=== PATIENT | female | born 1985 | race Caucasian/White ===

== ENCOUNTER 2017-11-08 15:00 | Inpatient (IN) | payer MEDICAID ==
--- NOTE | 2017-11-08 15:29 | C.PDOC ---
History Of Present Illness 32 y/o female with hx of depression, possible bipolar, presents to the ED with her baby in order to have her baby evaluated. patient states baby's belly is distended. During interview with mom, she does not recall her baby's , unclear if C Section of vaginal. Does not recall upsetter, baby's weight, she has no documentations regarding the baby. She states she has memory problems. Patient has distant, flat affect, becomes tearful. As per uncle she doen't sleep, yelling on the phone. Mother denies any issues. As per uncle, patient left her family's home and returned with a baby. Time Seen by Provider: 11/08/17 15:22 History Per: Patient, Family Pain Scale Rating Of: 0 Additional History Per: Family Past Medical History - Medical History PMH: Depression - [facility] Procedures APPLICATION OF SPLINT (12/24/14) Family History: States: Unknown Family Hx - Social History Hx Tobacco Use: Yes Hx Alcohol Use: Yes Hx Substance Use: No - Immunization History Hx Tetanus Toxoid Vaccination: No Hx Influenza Vaccination: No Hx Pneumococcal Vaccination: No Review Of Systems Constitutional: Negative for: Fever, Chills Cardiovascular: Negative for: Chest Pain, Palpitations Respiratory: Negative for: Cough, Shortness of Breath Gastrointestinal: Negative for: Nausea, Vomiting, Abdominal Pain Physical Exam - Physical Exam Appears: Well Skin: Normal Color Head: Atraumatic Eye(s): bilateral: PERRL Respiratory: Normal Breath Sounds Gastrointestinal/Abdominal: Soft, No Tenderness Medical Decision Making Medical Decision Making: Patient appears slow to respond, distracted, unclear or unable to answer many questions. States she is off her psych meds. recommend she be evaluated by psych. baby admitted to Peds for safety. [facility] will be notified. Crisis spoke with patient's uncle and mother. Patient encouraged to sign into psych for full evaluation, she is refusing. Will medically clear patient and have her seen by [facility] screeners. Dr. Dumont contacted. Disposition - Disposition Disposition Time: 16:23 Condition: GUARDED - Clinical Impression Clinical Impression: Depression Physician Patient Turnover Patient Signed Over To: Albert Brooke Handoff Comments: Patient acting bizzarre, pending medical clearance and [facility] screening.
[2017-11-08 16:59] LABS: BASO % 0.4 % (0.0-2.0); EOS % 0.3 % (0.0-4.0); HEMOGLOBIN 15.6 g/dL (11.0-16.0); LYMPH # 2.6 K/uL (1.0-4.3); LYMPH % 30.7 % (20.0-40.0); MEAN CELL VOLUME 87.7 fL (81.0-99.0); MEAN CORPUSCULAR HEMOGLOBIN 29.7 pg (27.0-31.0); MEAN CORPUSCULAR HGB CONC 33.8 g/dL (33.0-37.0); MEAN PLATELET VOLUME 9.5 fL (7.2-11.7); MONO # 0.4 K/uL (0.0-0.8); MONO % 5.2 % (0.0-10.0); NEUT # 5.4 K/uL (1.8-7.0); NEUT % 63.4 % (50.0-75.0); NRBC % 0.1 % (0.0-2.0); RBC 5.27 Mil/uL (3.80-5.20); RED CELL DISTRIBUTION WIDTH 15.9 % (11.5-14.5); WHITE BLOOD COUNT 8.6 K/uL (4.8-10.8)
[2017-11-08 17:05] LABS: HCG,QUALITATIVE URINE NEGATIVE (NEGATIVE)
[2017-11-08 17:07] LABS: SQUAMOUS EPITHIAL 1 /hpf (0-5); URINE BACTERIA MANY (<OCC); URINE BILIRUBIN NEGATIVE (NEGATIVE); URINE BLOOD 1+ (NEGATIVE); URINE CLARITY Hazy (Clear); URINE COLOR Yellow (YELLOW); URINE GLUCOSE (UA) NORMAL (Normal); URINE LEUKOCYTE ESTERASE 2+ Leu/uL (Negative); URINE NITRATE POSITIVE (NEGATIVE); URINE PROTEIN NEGATIVE (NEGATIVE); URINE UROBILINOGEN NORMAL mg/dL (0.2-1.0)
[2017-11-08 17:11] LABS: ALB/GLOB RATIO 1.2 (1.0-2.1); ALBUMIN 4.6 g/dL (3.5-5.0); ALT/SGPT 54 U/L (9-52); AST/SGOT 34 U/L (14-36); BLOOD UREA NITROGEN 8 mg/dL (7-17); CALCIUM 10.1 mg/dl (8.6-10.4); GFR AFRICAN-AMERICAN > 60; GFR NON-AFRICAN AMERICAN > 60
[2017-11-08 17:31] LABS: BARBITURATES, UR NEGATIVE (NEGATIVE); BENZODIAZEPINES, UR NEGATIVE (NEGATIVE); OPIATES, UR NEGATIVE (NEGATIVE); PHENCYCLIDINE, UR NEGATIVE (NEGATIVE)
[2017-11-08 19:12] VITALS: RESP 18; O2SAT 99
--- NOTE | 2017-11-08 20:45 | PCM.BM ---
<RobbiRosina - Last Filed: 11/08/17 20:42> Treatment Plan Problems - Problems identified on initial assessmt Depression Date Initiated: 11/08/17 Time Initiated: 19:20 Assessment reference: NA Status: Active Treatment assets and liabiliti Patient Assests: ADL independent, negotiates basic needs Patient Liabilities: poor support system, relationship conflicts, language/ speech - Milieu Protocol Maintain good personal hygiene: daily Encourage regular showers, daily Remind patient to perform daily oral care Conduct patient checks and document Observation sheet: Q15 minutes Maintain personal safety: every shift Educate patient to report safety concerns to staff, every shift Monitor environment for contraband/sharps Medication safety: Monitor for expected outcome, potential side effects: every shift, Assess barriers to learning: every shift, Assess readiness for medication education: every shift <Milind Dumont - Last Filed: 11/10/17 10:46> - Diagnosis (1) Bipolar disorder with psychotic features Status: Acute Interventions: 11/10/17 10:46 * Assess/adjust medications daily and /or as needed * See patient on an individual basis 7x/week to assess level of manic behaviors and stability * Discuss risks, benefits, side effects and alternatives of medications * <Karrie Lewis - Last Filed: 11/10/17 10:50> Family Contact Family involvement: Family/SO is involved Family contact: Patient agrees to contact Family contact name: Uncle Gergor Family contacted how many times per week?: 3 Family contact comment: "She needs help." - Goals for Treatment Patient goals for treatment: "I want to go home." Patient's family/SO goals for treatment: "We want her to get help." Discharge/Continuing Care - Education Needs Education Needs: Patient Medication, Patient Coping Skills - Discharge Discharge Criteria: Tolerates medication w/o severe side effects, Free of paranoid thoughts, Reduction of target symptoms Discharge to:: Home, With Family - Treatment Team Participation Discussed with Family/SO: Yes Was Patient/Family/SO present at Treatment Team Meeting: Yes
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
[2017-11-10] MEDS ORDERED: Pneumococcal 23-Valent Vaccine IM ONE (10:00)
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
--- NOTE | 2017-11-10 12:34 | CARD ---
APPROVED REPORT EKG Measurement Heart [id number] <Conclusion> Sinus tachycardia Otherwise normal ECG
[2017-11-11] MEDS ORDERED: Influenza Vaccine 60 mcg/0.5 mL SYR (4YR UP) IM ONE (10:00)
--- NOTE | 2017-11-11 10:44 | PCM.PYCHPN ---
Psychiatric Progress Note - Psychiatric Progress Note Patient seen today, length of contact: 15 min Patient Chief Complaint: " I am good. I have felt good since I got here. " Problems Identified/Issues Discussed: Patient seen and evaluated, chart reviewed and discussed with the nurse. Patient appears improved. She is less irritable, agitated and unkempt but remains internally preoccupied disorganized and without insight to her condition. She remains an unreliable source of information, contradicting her own accounts of her history and ages of her children. When confronted, she became evasive. She exhibits perseveration stating she doesn't understand why she's here. She does not want to take any medication for anything that isn't to improve her memory. She requested a diagnosis of ADD, but even then would not speak of herself as having any symptoms beyond memory issues. "Maybe I have ADD because those people have their mind scattered, they think of 5 things at the same time." She was resistant to taking anything beyond lithium at the lowest dose, but her thought process became tangential when asked why. She signed a 48 hour notice yesterday. Pt to be screened by the [facility] for involuntary admission. Medication Change: Yes (start prolixin, d/c risperdal) Medical Record Reviewed: Yes Mental Status Examination - Cognitive Function Orientation: Person, Place, Situation, Time Memory: Impaired, Other Attention: WNL Concentration: Poor Association: Loose Fund of Knowledge: Poor - Mood Mood: Anxious - Affect Affect: Constricted, Blunted - Speech Speech: Soft - Formal Thought Process Formal Thought Process: Paranoia, Loosening of associations - Suicidal Ideation Suicidal Ideation: No - Homicidal Ideation Homicidal Ideation: No Goal/Treatment Plan - Goal/Treatment Plan Need for Continued Stay: Discharge may exacerbated symptoms, Severe functional impairment Progress Toward Problem(s) and Goals/Treatment Plan: Schizoaffective disorder bipolar type -CBT -Psychoeducation -Supportive therapy, group therapy, individual therapy -Prolixin 5 mg PO BID -[place] 300 mg PO TID -Cogentin 2 mg PO Q6 PRN, 1 mg PO BID -Trazodone 50 mg by mouth daily at bedtime -Haldol 5mg PO Q8 PRN, 5 mg IM Q8 PRN -Atarax 25 mg PO Q6 PRN UTI -Macrobid 100mg Q12 Pt to be screened by the [facility] for involuntary admission. - Smoking Cessation Smoking Cessation Initiated: No
[2017-11-12 06:53] VITALS: BP 106/75; PULSE 50; TEMP 98.1
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
== END 2017-11-12 11:35 | disposition home or self-care (01) | DRG 430 ==
LOC: C.ER 15:00 → C.5E 17:36
PROVIDERS: ADMIT Psychiatry & Neurology Psychiatry; ATTEND Psychiatry & Neurology Psychiatry
PROC: GZ3ZZZZ Medication Management (ICD-10-PCS; principal; 2017-11-08)
PROC: GZHZZZZ Group Psychotherapy (ICD-10-PCS; 2017-11-08)
PROC: GZ56ZZZ Individual Psychotherapy, Supportive (ICD-10-PCS; 2017-11-08)
DX: F25.0 Schizoaffective disorder, bipolar type (principal); F17.210 Nicotine dependence, cigarettes, uncomplicated; N39.0 Urinary tract infection, site not specified